=== PATIENT | male | born 1945 | race Caucasian/White ===

== ENCOUNTER → 2019-09-07 | Outpatient (CLI) | payer MEDICARE, OTHER ==
--- NOTE | 2019-09-07 12:38 | RADIOLOGY REPORT (SQ) ---
EXAM DESCRIPTION: MRI LT LOWER JOINT WITHOUT COMPLETED DATE/TIME: 09/07/2019 10:35 am REASON FOR STUDY: PAIN IN LEFT KNEE M25.561 PAIN IN RIGHT KNEE COMPARISON: 04/13/2013 TECHNIQUE: Leftknee images acquired and stored on PACS. Multiplanar images include fat sensitive se quences as T1, water sensitive sequences as FST2 or STIR, cartilage sensitive sequences as FSPD, and gradient echo sequences. LIMITATIONS: None. FINDINGS: JOINT AND BURSAE: Small suprapatellar knee joint effusion. In the posterior aspect of the left knee soft tissues, a 2 cm diameter cluster of synovial cysts is present at the posterior attach ment of the PCL/posterior horn medial meniscus. This probably represents a cluster of parameniscal c ysts adjacent to it diffuse horizontal tear posterior horn medial meniscus. These findings are best shown on axial images 11-16, coronal images 22-24, and sagittal image 11. BONE CORTEX AND MARROW: No alteration of signal to suggest marrow replacement. No worrisome bone lesi ons. No occult fracture. ACL: Intact. No degeneration or ganglion cyst. PCL: Intact. MCL: Intact. No periligamentous edema or fluid. LCL: Intact. No periligamentous edema or fluid. MEDIAL MENISCUS: Diffuse horizontal tear throughout the medial meniscus, best shown on coronal images 13 through 21. LATERAL MENISCUS: No tears. No abnormal signal. MEDIAL COMPARTMENT: High-grade chondromalacia throughout the medial compartment. No osteophytes. Mi ld subcortical edema throughout the weight-bearing surface of the medial tibial plateau LATERAL COMPARTMENT: Focal high-grade chondromalacia weight-bearing surface lateral femoral condyle a nd tibial plateau on sagittal image 19 and coronal image 18. No bone bruises or reactive marrow markus a. No osteophytes. PATELLA: Diffuse moderate patellofemoral chondromalacia. No subchondral cysts. Medial and lateral ret inacula intact. EXTENSOR MECHANISM: Intact. Quadriceps and patella tendons normal. SOFT TISSUES: There is mild edema in the prepatellar soft tissues, question prepatellar bursitis on s agittal images 12-17. OTHER: No other significant finding. IMPRESSION: Suprapatellar knee joint effusion. Septated ganglion cyst along the posterior attachmen t of the medial meniscus. Diffuse horizontal tear medial meniscus. High-grade chondromalacia medial compartment with subcortical edema in the medial tibial plateau. TECHNICAL DOCUMENTATION: JOB ID: [id number] [employer]- All Rights Reserved Reading location - IP/workstation name: [email or web address]
== END ==
LOC: RAD 08:52
PROVIDERS: ATTEND Physician Assistant
DX: M25.562 Pain in left knee (principal)